=== PATIENT | male | born 1960 | race Caucasian/White ===

== ENCOUNTER 2018-11-24 06:32 | Emergency (ER) | payer BC ==
[~2018-11-24] VITALS: Ht 185.4 cm; Wt 115.4 kg
[~2018-11-24 06:32] MED LIST: CLIN300C10 PO; HYDR-4011 PO
[2018-11-24 06:37] VITALS: Ht 185.4 cm; Wt 115.4 kg
[2018-11-24 08:12] VITALS: BP 146/85; PULSE 62; RESP 15
== END 2018-11-24 08:26 | disposition home or self-care (01) ==
LOC: E/R 06:32
DX: Z46.89 Encounter for fitting and adjustment of other specified devices (principal); I10 Essential (primary) hypertension
CPT/HCPCS: 73630; Z7502